=== PATIENT | male | born 1940 | race Caucasian/White ===

== ENCOUNTER 2018-01-18 06:55 | Inpatient (IN) | payer MEDICARE, OTHER ==
[~2018-01-18 06:55] MED LIST: CELECOXIB 100 MG CAPSULE PO ONE; FAMOTIDINE 20MG TABLET PO ONE; MECLIZINE 25 MG TABLET PO ONE; METOCLOPRAMIDE 10 MG TABLET PO ONE; VANCOMYCIN HCL 1,000 MG in DEXTROSE 5 % IN WATER 250 ML IVPB ONE
[2018-01-18 07:36] LABS: ABO GROUP A; ANTIBODY SCREEN NEGATIVE (NEGATIVE); RH TYPE POSITIVE
[2018-01-18] MEDS ORDERED: DIPHENHYDRAMINE HCL 25 MG CAPSULE PO PRN (11:06)
[2018-01-18] MEDS ORDERED: ONDANSETRON HCL IV 4 MG/2 ML VIAL IVP PRN (11:06)
[2018-01-18] MEDS ORDERED: NALOXONE 0.4 MG/1 ML VIAL IVP PRN (11:06)
[2018-01-18] MEDS ORDERED: HYDROCODONE/APAP 10/325 TABLET PO PRN ×2 (11:06)
[2018-01-18] MEDS ORDERED: HYDROMORPHONE HCL 2 MG/ML VIAL IM PRN (11:06)
[2018-01-18] MEDS ORDERED: ACETAMINOPHEN 325 MG TAB PO PRN (11:06)
[2018-01-18] MEDS ORDERED: KETOROLAC 30 MG/ML VIAL IVP PRN ×2 (11:06)
[2018-01-18] MEDS ORDERED: MAGNESIUM HYDROXIDE 30 ML UDC PO PRN (11:06)
[2018-01-18] MEDS ORDERED: ZOLPIDEM TARTRATE 5 MG TABLET PO PRN (11:06)
[2018-01-18] MEDS ORDERED: BISACODYL 10 MG SUPP RC PRN (11:06)
[2018-01-18] MEDS ORDERED: ACETAMINOPHEN W/ CODEINE 300MG/60MG TABLET PO PRN (11:06)
[2018-01-18] MEDS ORDERED: AL HYDROX/MAG HYDROX 30ML UD PO PRN (11:06)
[2018-01-18] MEDS ORDERED: 0.9 % SODIUM CHLORIDE 1000ML 2,000 ML IV ONE (11:28)
[2018-01-18] MEDS ORDERED: LIDOCAINE 2% MDV (20MG/ML) 20ML VIAL IV ONE (14:00)
[2018-01-18] MEDS ORDERED: MEPIVACAINE HCL/PF (POLOCAINE) 2% 20MG/ML VIAL INJ ONE (14:00)
[2018-01-18] MEDS ORDERED: DIPHENHYDRAMINE HCL IV 50 MG/ML VIAL IVP ONE (14:00)
[2018-01-18] MEDS ORDERED: HYDROMORPHONE HCL 2 MG/ML VIAL IV ONE (14:00)
[2018-01-18] MEDS ORDERED: MIDAZOLAM HCL 2MG/2ML VIAL IV ONE (14:00)
[2018-01-18] MEDS ORDERED: PROPOFOL 10 MG/ML VIAL IV ONE (14:00)
[2018-01-18] MEDS ORDERED: ONDANSETRON HCL IV 4 MG/2 ML VIAL IVP ONE ×2 (14:00→16:30)
[2018-01-18] MEDS ORDERED: BUPIVACAINE 0.5% W/EPI MPF 30 ML VIAL IVP ONE (14:36)
[2018-01-18] MEDS ORDERED: TRANEXAMIC ACID 1,000 MG/10 ML ML IV ONE (14:36)
--- NOTE | 2018-01-18 16:17 | Operative Note ---
DATE: 01/18/18 PREOPERATIVE DIAGNOSIS: END-STAGE ARTHROSIS OF THE LEFT KNEE. POSTOPERATIVE DIAGNOSIS: END-STAGE ARTHROSIS OF THE LEFT KNEE. PROCEDURE: Cemented left total knee arthroplasty using Ale[employer]and[employer] II components with a size 7 [place] Chrome femur, size 7 stemmed tibial base plate, a 9 mm lipped tibial insert, and a 35 mm all-plastic patella. STAFF SURGEON: WEI BAUTISTA M.D. ANESTHESIA: SPINAL. PREPARATION: CHLORAPREP. INDIVIDUAL CONSIDERATIONS: NONE. PROCEDURE: The patient was taken to the Operating Room and placed supine on the operating table. He had a successful induction of a spinal anesthetic. His left lower extremity was prepped and draped in the usual fashion. The patient had a midline approach to the knee. The limb was elevated and the tourniquet was inflated to 250 mmHg. Sharp dissection was carried down through the skin and subcutaneous tissue. Small veins were coagulated with a Bovie. A medial arthrotomy was performed. The patella was everted and the knee was flexed. The patient had exposed bone in some of the patellofemoral compartments especially in the notch. The ACL was sacrificed, capsule was released from the medial proximal tibia, and provisional anterior meniscectomies were performed. The initial femoral helicopter pilot hole was then made freehand. The intramedullary femoral cutting jig was placed. It was cut in 7 degrees of valgus and adjusted for rotation and secured with pins. The initial transverse cut was then made and it was set for a 10 mm resection. The skin guide was placed in the anterior and posterior helicopter pilot holes and it was found that a size 7 would be appropriate. The anterior and posterior cuts followed by chamfer cuts were made, osteophytes removed, and a size 7 trial was placed and found to fit well. The tibia was brought forward and the remainder of the meniscal remnants were removed with a Bovie. The extra-articular tibial cutting jig was placed and it was cut neutral with a 3 degree AP slope. Care was taken to adjust for rotation and flexion using the cutting blocks and was set for a 9 mm resection and keyed off the high lateral side. When cutting the tibia, care was taken to preserve the PCL insertion on the tibia. Osteophytes were removed and I found that I could easily fit a size 7 baseplate trial. This was adjusted for rotation and secured with pins. With a 9 mm trial and a femoral trial, there was excellent motion and stability. The femoral helicopter pilot holes were impacted and a triflange tibial stamp was impacted, and these trial components were removed. The patient had a thick patella and I was able to easily remove roughly 9 mm of bone with an oscillating saw freehand. It would easily fit a 35 patella and the three helicopter pilot holes were then drilled. The tourniquet was let down briefly to get bleeders posteriorly then placed back up again. The knee was then thoroughly irrigated with pulsatile Betadine and saline to remove any visual or palpable debris. Bony surfaces were then dried. A size 7 stem tibial baseplate was cemented into place, followed by impaction of an 9 mm lipped tibial insert, followed by cementing in the size 7 [place] Chrome femur, followed by cementing in the 35 mm patella. Implant surfaces were compressed, excess cement was removed, and after the cement had set, there was excellent motion and stability. Ligamentous balance, rotation alignment, and patellofemoral tracking were normal. No lateral release was required. Tourniquet was let down. Hemostasis was obtained with a Bovie. Again, thorough irrigation. The skin and periosteum were then infiltrated with 30 mL of 0.50% Marcaine with Epinephrine. The capsule was then closed with a running #2 Quill, the subcutaneous was closed in layers with running 0 Quill, and the skin was closed with maribell. 30 mL of saline was mixed with a gram of Tranexamic Acid and this was injected into the knee through a sterile 18-gauge needle and a sterile [place]kee compressive Aquacel-type dressing was applied. The patient tolerated the procedure well. Needle and sponge counts were correct. Estimated blood loss was minimal and he was taken back to Recovery in good condition. There were no complications. cc: Dr. Christiane Whittaker JOB NUMBER: [id number] MTDD
--- NOTE | 2018-01-18 16:25 | Rehab Evaluation ---
Patient Information - Patient Information Diagnosis: DJD L Knee Ordered Treatment: PT Evaluate and Treat Status: Initial Evaluation Surgery: Yes Date of Surgery: 01/18/18 (L TKA) Past Medical/Surgical Hx: PAST MEDICAL/SURGICAL HISTORY Past Surgical History RTKA bilat CTR c scope EGD vagotomy 2010 heart stent 2011 cervical surgery previous cervical sx 2013 lumbar sx 2013 hernia repair PMH - Respiratory Hx Respiratory Disorders Yes Hx Pneumonia Yes PMH - Cardiovascular Hx Cardiovascular Disorders Yes Hx Abnormal EKG Yes: ABN pre op EKG 01-06-18 going for stress test 01-13-18 Hx Cardiac Catheterization Yes Hx Hypertension Yes: on meds good control Hx Coronary Artery Disease Yes Hx Coronary Stent Yes: 2010 Hx Rheumatic Fever Yes: as a child Exercise Tolerance Good PMH - Neuro Hx Neurological Disorders No PMH - GI Hx Gastrointestinal Disorders Yes Hx Ulcer Yes: PMH - Hx Genitourinary Disorders No PMH - Endocrine Hx Endocrine Disorders Yes Hx Diabetes Yes: dx'd 2 yrs ago Hx of NIDDM Yes: on metformin Comment: A1C 6.1 FBS 108-112 PMH - Musculoskeletal Hx Musculoskeletal Disorders Yes Hx Arthritis Yes Hx Back Injury Yes PMH - Psych Hx Psychiatric Problems No PMH - Hematology/Oncology Hx Hematology/Oncology Yes Disorders Hx Anemia Yes Hx Bruising Yes: bruises easily 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 The home has 2 steps to enter with a hand rail on the left. The patient has a walk-in shower with a shower bench, grab bars, and hand-held shower head. The patient has an elevated toilet seat, but no grab bars. The patient will be using a standard walker for ambulation.) Precautions: Other (WBAT on L.) - Time With Patient Total Time Spent With Patient (Min): 30 Treatment Procedures: Detail (PT Initial Evaluation) Subjective Information - Subjective Information Per Patient (The patient had no complaints of dizziness or nausea at initial evaluation.) Objective Data - Pain Pain Present: No Pain Intensity: 0 Pain Scale Used: Numeric (1 - 10) - Mental Status Patient Orientation: Oriented x3 - ROM Within normal limits (The patient was limited in L knee ROM as expected s/p L TKA. Other joints were not formally assessed, but were within functional limits for evaluation activities.) - Strength/Tone Within normal limits (The patient's strength was not formally assessed, but the patient did have limits in L knee strength as expected s/p L TKA. He was within functional limits at other joints for evaluation activities.) - Bed Mobility Independent (The patient was independent with supine to sit and sit to supine. He was independent with scooting to the middle of the bed.) - Transfers Independent (The patient was able to transfer from sit to stand and stand to sit independently.) - Balance Balance Sitting: Good (No LOB with sitting at the bedside) Balance Standing: Good (The patient showed no LOB with static standing at the bedside. The patient showed no LOB with gait activities.) - Gait Detail (The patient was able to ambulate from his bedside to room 28 and back to his room (about 80 feet total). He required supervision only, and used a 2WW and WBAT on L.) Therapy Assessment - Therapy Assessment Detail (The patient showed independence with transfers and bed mobility. He required supervision for gait activities, but ability to ascend/descend stairs was not assessed. The patient should progress well with inpatient PT.) Patient Education - Patient Education Teaching Topic: Exercise/Activity (HEP was reviewed, which included: Quad sets, hamstring sets, glute. sets, ankle pumps, and SLR. He was instructed to complete 10 reps 1-2x/day,) Response: Return Demonstration, Verbalize Understanding Teaching Method: Discussion, Demonstration Teaching Recipient: Patient Barriers To Learning: None Problem List - Problem List Physical Therapy Problem List: Detail (1) Decreased ROM and strength in L knee as expected s/p L TKA 2) Ability to ascend/descend stairs was not assessed) Goals - Goals Physical Therapy Goals: 1) The patient will be able to ascend and descend 3 stairs with supervision to safely enter/exit the home. 2) The patient will be independent in HEP to increase ROM and strength in L knee to improve function in the home. Prognosis - Prognosis Good Plan - Plan Physical Therapy Plan: The patient will be seen 1-2x/day M- for gait training and LE strengthening activities.
[2018-01-18] MEDS: CEFAZOLIN 2 Gram 2 GM/50 ML BAG IVPB ONE ×2 (16:30→18:44)
[2018-01-18] MEDS: TIMOLOL MALEATE 0.5% 5ML BTL OPTH SCH (16:36)
[2018-01-18] MEDS: CEFAZOLIN 2 Gram 2 GM/50 ML BAG IVPB SCH (16:37)
[2018-01-18] MEDS: HUMULIN R 100 UNIT/ML VIAL SQ SCH ×2 (18:37→18:40)
[2018-01-18] MEDS: POTASSIUM CHLORIDE/D5-0.9%NACL 20 MEQ/1,000 ML BAG IV SCH ×2 (20:09→22:01)
[2018-01-18] MEDS: DOCUSATE SODIUM 100 MG CAPSULE PO SCH (21:21)
[2018-01-18] MEDS: MAGNESIUM OXIDE 400 MG TABLET PO SCH (21:22)
[2018-01-18] MEDS: CALCIUM CARB/VITAMIN D 500MG/200IU PO SCH (21:22)
[2018-01-18] MEDS ORDERED: LATANOPROST 0.005% OPTH SOLUTION 2.5ML BOTTLE OPTH SCH (22:00)
[2018-01-18] MEDS ORDERED: ATORVASTATIN 20 MG TABLET PO SCH (22:00)
[2018-01-19] MEDS: CEFAZOLIN 2 Gram 2 GM/50 ML BAG IVPB SCH ×2 (00:41→09:45)
[2018-01-19] MEDS: POTASSIUM CHLORIDE/D5-0.9%NACL 20 MEQ/1,000 ML BAG IV SCH (04:26)
[2018-01-19 06:42] LABS: HEMATOCRIT 34.7 % (42.0-52.0); HEMOGLOBIN 11.5 gm/dl (14.0-18.0)
[2018-01-19 06:58] LABS: BLOOD UREA NITROGEN 13 mg/dL (8-23); CREATININE 0.8 mg/dL (0.7-1.2); EST GLOMERULAR FILTRATION RATE > 60 mL/min; GLUCOSE,RANDOM 172 mg/dL (74-109)
[2018-01-19] MEDS: ACETAMINOPHEN W/ CODEINE 300MG/60MG TABLET PO PRN ×2 (07:57→12:58)
[2018-01-19] MEDS ORDERED: ASPIRIN 325 MG TAB ENTERIC-COATED PO SCH (10:00)
[2018-01-19] MEDS ORDERED: FERROUS SULFATE 325 MG TAB PO SCH ×2 (10:00)
[2018-01-19] MEDS ORDERED: METOPROLOL SUCC 50 MG TABLET PO SCH (10:00)
[2018-01-19] MEDS ORDERED: MULTIVITAMINS/MINERALS TABLET PO SCH (10:00)
[2018-01-19] MEDS ORDERED: METFORMIN 500 MG TABLET PO SCH (10:00)
[2018-01-19] MEDS ORDERED: RIVAROXABAN 10 MG TABLET PO SCH (10:00)
[2018-01-19] MEDS ORDERED: AMLODIPINE BESYLATE 5MG TAB PO SCH (10:00)
[2018-01-19] MEDS ORDERED: LISINOPRIL 20 MG TABLET PO SCH (10:00)
[2018-01-19] MEDS: DOCUSATE SODIUM 100 MG CAPSULE PO SCH (10:19)
[2018-01-19] MEDS: CALCIUM CARB/VITAMIN D 500MG/200IU PO SCH (10:19)
[2018-01-19] MEDS: MAGNESIUM OXIDE 400 MG TABLET PO SCH (10:19)
[2018-01-19] MEDS: TIMOLOL MALEATE 0.5% 5ML BTL OPTH SCH (10:22)
[2018-01-19] MEDS: HUMULIN R 100 UNIT/ML VIAL SQ SCH (10:24)
--- NOTE | 2018-01-19 10:44 | Rehab Evaluation ---
Patient Information - Patient Information Diagnosis: DJD L Knee Ordered Treatment: OT Evaluate and Treat Status: Initial Evaluation Surgery: Yes Date of Surgery: 01/18/18 (L TKA) Past Medical/Surgical Hx: PAST MEDICAL/SURGICAL HISTORY Past Surgical History RTKA bilat CTR c scope EGD vagotomy 2010 heart stent 2012 cervical surgery previous cervical sx 2013 lumbar sx 2013 hernia repair PMH - Respiratory Hx Respiratory Disorders Yes Hx Pneumonia Yes PMH - Cardiovascular Hx Cardiovascular Disorders Yes Hx Abnormal EKG Yes: ABN pre op EKG 01-06-18 going for stress test 01-13-18 Hx Cardiac Catheterization Yes Hx Hypertension Yes: on meds good control Hx Coronary Artery Disease Yes Hx Coronary Stent Yes: 2010 Hx Rheumatic Fever Yes: as a child Exercise Tolerance Good PMH - Neuro Hx Neurological Disorders No PMH - GI Hx Gastrointestinal Disorders Yes Hx Ulcer Yes: PMH - Hx Genitourinary Disorders No PMH - Endocrine Hx Endocrine Disorders Yes Hx Diabetes Yes: dx'd 2 yrs ago Hx of NIDDM Yes: on metformin Comment: A1C 6.1 FBS 108-112 PMH - Musculoskeletal Hx Musculoskeletal Disorders Yes Hx Arthritis Yes Hx Back Injury Yes PMH - Psych Hx Psychiatric Problems No PMH - Hematology/Oncology Hx Hematology/Oncology Yes Disorders Hx Anemia Yes Hx Bruising Yes: bruises easily 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 reported he was Ind. with all I/ADL's prior to sx. ) Social History: Detail (The patient lives in a one story home with his spouse. The home has 2 steps to enter with a hand rail on the left. The patient has a walk-in shower with a shower bench, grab bars, and hand-held shower head. The patient has an elevated toilet seat, but no grab bars. The patient will be using a standard walker for ambulation. Pt. reported his has 6 days off of work and will be available to assist as needed.) Precautions: Other (WBAT on L.) - Time With Patient Total Time Spent With Patient (Min): 20 Objective Data - Pain Pain Present: Yes (Pt. reported minimal pain (2/10) in LLE.) - Mental Status Patient Orientation: Oriented x3 - Visual Perception Appears within normal limits for therapeutic activities - ROM Within normal limits (BUE) - Strength/Tone Within normal limits (BUE 5/5 MMT) - Coordination Appears within normal limits for therapeutic activities - Transfers Independent (sit<>stand from chair to walker) - Balance Balance Sitting: Good Balance Standing: Fair - Sensation Intact (BUE light touch intact fingertips) - ADL's/IADL's Detail (Pt. stated he has a associate software engineer, sock aid, and long handled shoe horn at home but hasn't used the associate software engineer in a while. He was familiar with adaptive dressing techniques and use of AE from previous sx of R knee replacement and hx of neck and back injuries. Techniques and AE were still reviewed. Pt. used associate software engineer to don elastic waist pants independently.) Therapy Assessment - Therapy Assessment Detail (In-pt. OT services not recommended at this time. Pt. has a positive support system and assistance if needed during recovery. Pt. has AE and a good set-up in his home environment, and demo. awareness of adaptive techniques. Pt. stated no questions or concerns at this time.) Patient Education - Patient Education Teaching Topic: Equipment Use Response: Return Demonstration, Verbalize Understanding Teaching Method: Discussion, Demonstration Teaching Recipient: Patient Barriers To Learning: None Problem List - Problem List Physical Therapy Problem List: Detail (1) Decreased ROM and strength in L knee as expected s/p L TKA 2) Ability to ascend/descend stairs was not assessed) Goals - Goals Physical Therapy Goals: 1) The patient will be able to ascend and descend 3 stairs with supervision to safely enter/exit the home. 2) The patient will be independent in HEP to increase ROM and strength in L knee to improve function in the home. Prognosis - Prognosis Good Plan - Plan Physical Therapy Plan: The patient will be seen 1-2x/day M-F for gait training and LE strengthening activities. Occupational Therapy Plan: D/C from OT services. Educ. was provided to call if has Q's when he arrives home.
--- NOTE | 2018-01-19 11:24 | Physical Therapy Tx Note ---
Physical Therapy Tx Note - Treatment Note Tolerated: Good (Pt. reported 2/10 knee pain from start to finish of tx. Pt. denied SOB/ nausea, and fatigue. Pt. reported good understanding of HEP and precautions, and has been through TKA on the contralateral side. The pt.'s walker was adjusted to his proper height and he demonstrated good understanding of gait mechanics once cued to advance the walker appropriately and slow down saadia.) Total Time Spent With Patient: 30 Physical Therapy Tx Note: Detail (Pt. was seen for PT tx that consisted of gait training for proper walker advancement and stair use. Pt. independently ambulated 80 feet with standard walker and independently ascended and descended three steps safely. Pt. received instruction for stair use to lift the appropriate LE, and verbalized good understanding. Pt. verbalized understanding of infection signs and precautions. Pt. received therapeutic activity for HEP performance and positioning of his leg while seated. Pt. was left seated with call light available, Cryo LLE, and nursing was notified of pt.'s status.) Physical Therapy Problem List: Detail (Pt. was seen for stairs and exhibits no PT problems that would warrant further inpatient care.) Physical Therapy Goals: Pt. has met all goals set for inpatient PT per initial evaluation. Prognosis: Good (Pt. has met all inpatient PT goals and is appropriate for D/C to home environment.) Physical Therapy Plan: D/C pt. from inpatient PT.
[2018-01-19] MEDS ORDERED: LIDOCAINE 2% MDV (20MG/ML) 20ML VIAL IV ONE (14:19)
[2018-01-19] MEDS ORDERED: DIPHENHYDRAMINE HCL IV 50 MG/ML VIAL IVP ONE (14:19)
[2018-01-19] MEDS ORDERED: ONDANSETRON HCL IV 4 MG/2 ML VIAL IVP ONE (14:19)
[2018-01-19] MEDS ORDERED: PROPOFOL 10 MG/ML VIAL IV ONE (14:19)
[2018-01-19] MEDS ORDERED: HYDROMORPHONE HCL 2 MG/ML VIAL IV ONE (14:19)
[2018-01-19] MEDS ORDERED: MIDAZOLAM HCL 2MG/2ML VIAL IV ONE (14:19)
[2018-01-19] MEDS ORDERED: MEPIVACAINE HCL/PF (POLOCAINE) 2% 20MG/ML VIAL INJ ONE (14:19)
--- NOTE | 2018-01-20 16:26 | Discharge Summary ---
DATE OF ADMISSION: 01/18/18 DATE OF DISCHARGE: 01/19/18 DATE OF SURGERY: 01/18/18 HISTORY: Mr. Escobar is a delightful 77-year-old male who presents with end-stage arthrosis of his left knee. He was admitted after left total knee arthroplasty. Postoperatively, he did well. His hospital course was unremarkable. He was independent on the evening of surgery. DISCHARGE INSTRUCTIONS: The plan is to discharge him home in the care of his family. Home PT and Visiting Nurse were arranged. Discharge hemoglobin was 11.5 and did not require transfusion. The sutures will be removed by the Visiting Nurse in two weeks. He will follow-up in my office in four weeks. He will be maintained on the Xarelto dose for five days and then he will continue with his daily Aspirin. Follow-up in four weeks. FINAL DIAGNOSIS/PRIMARY DIAGNOSIS: END-STAGE ARTHROSIS OF THE LEFT KNEE. SECONDARY DIAGNOSES: OPERATIVE BLOOD LOSS ANEMIA. OPERATIONS AND PROCEDURES: CEMENTED LEFT TOTAL KNEE ARTHROPLASTY. DISCHARGE CONDITION: GOOD. cc: Dr. Christiane Whittaker JOB NUMBER: [id number] MTDD
== END 2018-01-19 14:45 | disposition home health service (06) | DRG 470 ==
LOC: MEDSURG 06:55
PROVIDERS: ADMIT Orthopaedic Surgery; ATTEND Orthopaedic Surgery
PROC: 0SRD069 Replacement of Left Knee Joint with Oxidized Zirconium on Polyethylene Synthetic Substitute, Cemented, Open Approach (ICD-10-PCS; principal; 2018-01-18 09:00)
DX: M17.12 Unilateral primary osteoarthritis, left knee (principal); I10 Essential (primary) hypertension; E11.9 Type 2 diabetes mellitus without complications; Z79.84 Long term (current) use of oral hypoglycemic drugs; E78.00 Pure hypercholesterolemia, unspecified
CPT/HCPCS: 36416; 80048; 82948; 85014; 85018; 86850; 86900; 86901; 97116; 97165; 97530; J0670; J1200; J2405; J3480